=== PATIENT | male | born 1995 | race African-American/Black ===

== ENCOUNTER 2018-09-09 14:37 | Emergency (ER) | payer SELFPAY ==
[~2018-09-09] VITALS: Ht 170.2 cm; Wt 68.0 kg
[2018-09-09 14:42] VITALS: Ht 170.2 cm; Wt 68.0 kg
[2018-09-09 15:54] VITALS: BP 122/61
== END 2018-09-09 15:54 | disposition home or self-care (01) ==
LOC: ED 14:37
DX: J45.901 Unspecified asthma with (acute) exacerbation (principal)
CPT/HCPCS: J7512; J7613; J7644